=== PATIENT | female | born 1990 | race Caucasian/White ===

== ENCOUNTER 2016-11-01 16:44 | Emergency (ER) | payer MEDICAID ==
[~2016-11-01] VITALS: Ht 149.9 cm; Wt 104.5 kg
[~2016-11-01 16:44] MED LIST: NKA; PERCOCET 325 MG1 TA2 PO; PERCOCET 325 MG1 TA3 PO; PROAIR HFA0.09 MG/AC IH
[2016-11-01 16:46] VITALS: BP 141/88; TEMP 98.7
[2016-11-01] MEDS ORDERED: TYLENOL W/COD1 UDTAB PO (18:11)
[2016-11-01 18:47] VITALS: PULSE 87
== END 2016-11-01 18:52 | disposition home or self-care (01) ==
LOC: COL.ER 16:44
DX: J11.1 Influenza due to unidentified influenza virus with other respiratory manifestations (principal)

== ENCOUNTER 2016-12-06 17:19 | Emergency (ER) | payer MEDICAID ==
[~2016-12-06] VITALS: Ht 152.4 cm; Wt 104.5 kg
[~2016-12-06 17:19] MED LIST changes: +TYLENOL W/COD1 UDTAB PO
[2016-12-06 17:28] VITALS: BP 143/74; TEMP 99.4
[2016-12-06] MEDS ORDERED: AMOXICILLIN 50500 MG PO (17:50)
[2016-12-06 17:58] VITALS: PULSE 78
== END 2016-12-06 17:58 | disposition home or self-care (01) ==
LOC: COL.ER 17:19
DX: K08.89 Other specified disorders of teeth and supporting structures (principal)

== ENCOUNTER 2017-12-21 20:30 | Emergency (ER) | payer MEDICAID ==
[~2017-12-21 20:30] MED LIST changes: +AMOXICILLIN 50500 MG PO
[2017-12-21 20:34] VITALS: TEMP 98.5
[2017-12-21 20:59] LABS: BASO % 0.3 % (0.0-2.0); EOS # 0.3 (0.0-0.7); EOS % 2.6 % (0-4.0); GRAN # 7.6 (1.4-6.5); GRAN % 67.1 % (42.2-75.2); HEMOGLOBIN 12.3 g/dl (12.5-16.0); LYMPH # 2.7 (1.2-3.4); MEAN CELL VOLUME 90 fl (80.0-100.0); MEAN CORPUSCULAR HEMOGLOBIN 31 pg (27.0-31.0); MEAN CORPUSCULAR HGB CONC 35 g/dl (33.0-37.0); MONO # 0.6 (0.1-0.6); MONO % 5.5 % (1.7-9.3); PLATELET COUNT 272 K/mm3 (130-400); RED BLOOD COUNT 3.94 M/mm3 (4.10-5.30); REDCELL DISTRIBUTION WIDTH-CV 12.8 % (11.5-14.5)
[2017-12-21 21:02] LABS: HEMATOCRIT 35.4 % (37.0-47.0)
[2017-12-21 22:33] LABS: ALBUMIN 4.1 gm/dL (3.5-5.0); BILIRUBIN,TOTAL 1.3 mg/dL (0.0-1.0); CALCIUM 9.3 mg/dL (8.4-10.2); CREATININE, serum 0.77 mg/dL (0.52-1.25); POTASSIUM 3.7 mmol/L (3.4-5.0); TOTAL PROTEIN 8.5 gm/dL (6.4-8.2)
[2017-12-21 23:20] LABS: COLLECTION METHOD CLEAN CATCH
[2017-12-21 23:41] LABS: AMORPHOUS CRYSTAL Present /uL; MUCOUS Present /lpf; PH 6 (5-8); SQUAMOUS EPITHELIAL None Seen /hpf; URINE APPEARANCE Turbid; URINE BACTERIA Moderate /hpf; URINE BILIRUBIN Negative (NEGATIVE); URINE BLOOD 3+ (NEGATIVE); URINE COLOR Amber; URINE GLUCOSE Negative (NEGATIVE); URINE KETONE Negative (NEGATIVE); URINE LEUKOCYTE ESTERASE Negative (NEGATIVE); URINE NITRATE Negative (NEGATIVE); URINE PROTEIN(semi-quant) 2+ (NEGATIVE); URINE RBC >50 /hpf
[2017-12-22] MEDS ORDERED: MACROBID 1100 MG/CAP PO (00:27)
[2017-12-22 01:28] VITALS: BP 136/89; PULSE 78
[2017-12-22] MEDS ORDERED: CEFTIN500 MG PO (14:58)
== END 2017-12-22 01:31 | disposition home or self-care (01) ==
LOC: COL.ER 20:30
PROVIDERS: Emergency Medicine
DX: N93.9 Abnormal uterine and vaginal bleeding, unspecified (principal); K52.9 Noninfective gastroenteritis and colitis, unspecified
CPT/HCPCS: J2765; J3010; J7030; Q9967

== ENCOUNTER 2017-12-22 14:09 | Emergency (ER) | payer MEDICAID ==
[~2017-12-22] VITALS: Ht 154.9 cm; Wt 106.8 kg
[~2017-12-22 14:09] MED LIST changes: +MACROBID 1100 MG/CAP PO
[2017-12-22 14:15] VITALS: BP 129/93; TEMP 98.2
[2017-12-22] MEDS ORDERED: CEFTIN500 MG PO (14:58)
[2017-12-22 15:07] VITALS: PULSE 78
== END 2017-12-22 15:08 | disposition home or self-care (01) ==
LOC: COL.ER 14:09
DX: T37.8X5A Adverse effect of other specified systemic anti-infectives and antiparasitics, initial encounter (principal); F17.210 Nicotine dependence, cigarettes, uncomplicated
CPT/HCPCS: J1100

== ENCOUNTER 2018-06-07 21:22 | Emergency (ER) | payer MEDICAID ==
[~2018-06-07 21:22] MED LIST changes: +CEFTIN500 MG PO
[2018-06-07 21:32] VITALS: TEMP 98.3
[2018-06-07 21:51] LABS: COLLECTION METHOD CLEAN CATCH
[2018-06-07 21:59] LABS: MUCOUS Present /lpf; PH 5 (5-8); URINE APPEARANCE Clear; URINE BACTERIA None Seen /hpf; URINE BILIRUBIN Negative (NEGATIVE); URINE BLOOD Negative (NEGATIVE); URINE COLOR Yellow; URINE GLUCOSE Negative (NEGATIVE); URINE KETONE Negative (NEGATIVE); URINE LEUKOCYTE ESTERASE Negative (NEGATIVE); URINE NITRATE Negative (NEGATIVE); URINE PROTEIN(semi-quant) Negative (NEGATIVE); URINE RBC 0-2 /hpf; URINE UROBILINOGEN Negative (NEGATIVE)
[2018-06-07 23:50] LABS: BASO % 0.3 % (0.0-2.0); EOS # 0.2 (0.0-0.7); EOS % 1.6 % (0-4.0); GRAN # 8.1 (1.4-6.5); GRAN % 67.2 % (42.2-75.2); HEMOGLOBIN 11.1 g/dl (12.5-16.0); LYMPH # 3.1 (1.2-3.4); LYMPH % 25.7 % (20.0-51.0); MEAN CELL VOLUME 88 fl (80.0-100.0); MEAN CORPUSCULAR HEMOGLOBIN 29 pg (27.0-31.0); MEAN CORPUSCULAR HGB CONC 33 g/dl (33.0-37.0); MEAN PLATELET VOLUME 11.5 fl (7.4-10.4); MONO # 0.6 (0.1-0.6); MONO % 4.7 % (1.7-9.3); PLATELET COUNT 250 K/mm3 (130-400); RED BLOOD COUNT 3.77 M/mm3 (4.10-5.30); REDCELL DISTRIBUTION WIDTH-CV 13.8 % (11.5-14.5)
[2018-06-07 23:51] LABS: HEMATOCRIT 33.2 % (37.0-47.0)
[2018-06-08 00:05] LABS: ALBUMIN 4.2 gm/dL (3.5-5.0); BILIRUBIN,TOTAL 0.9 mg/dL (0.0-1.0); CALCIUM 9.3 mg/dL (8.4-10.2); CREATININE, serum 0.64 mg/dL (0.52-1.25); POTASSIUM 3.9 mmol/L (3.4-5.0); TOTAL PROTEIN 7.6 gm/dL (6.4-8.2)
[2018-06-08] MEDS ORDERED: PRENATAL (00:24)
[2018-06-08 01:15] VITALS: BP 124/83; PULSE 73
== END 2018-06-08 01:16 | disposition home or self-care (01) ==
LOC: COL.ER 21:22
PROVIDERS: Emergency Medicine; Physician Assistant
DX: O26.891 Other specified pregnancy related conditions, first trimester (principal); R10.10 Upper abdominal pain, unspecified; O99.281 Endocrine, nutritional and metabolic diseases complicating pregnancy, first trimester; E03.9 Hypothyroidism, unspecified; Z3A.01 Less than 8 weeks gestation of pregnancy

== ENCOUNTER 2018-11-29 17:47 | Outpatient (CLI) | payer MEDICAID ==
[~2018-11-29] VITALS: Ht 152.4 cm; Wt 101.4 kg
[~2018-11-29 17:47] MED LIST changes: +PRENATAL
[2018-11-29 17:56] VITALS: BP 129/72; PULSE 70; TEMP 98
[2018-11-29 18:03] LABS: COLLECTION METHOD CLEAN CATCH
[2018-11-29] MEDS ORDERED: TYLENOL 500MG500 MG PO (18:09)
[2018-11-29 18:14] LABS: MUCOUS Present /lpf; PH 6 (5-8); SQUAMOUS EPITHELIAL 0-2 /hpf; URINE APPEARANCE Clear; URINE BACTERIA Rare /hpf; URINE BILIRUBIN Negative (NEGATIVE); URINE BLOOD 1+ (NEGATIVE); URINE COLOR Straw; URINE GLUCOSE Negative (NEGATIVE); URINE KETONE 1+ (NEGATIVE); URINE LEUKOCYTE ESTERASE Negative (NEGATIVE); URINE NITRATE Negative (NEGATIVE); URINE PROTEIN(semi-quant) Negative (NEGATIVE); URINE RBC None Seen /hpf; URINE UROBILINOGEN Negative (NEGATIVE)
--- NOTE | 2018-11-29 18:15 | NUR ---
1750- Pt arrives on unit ambulatory for labor check. Pt complains of having lower back, hip, lower abdominal pain since around 1300 today. Pt denies VB/LOF. +FM. Pt states she had sexual intercourse yesterday. She is concerned that she is having so much discomfort with this . 1800- EFM and TOCO on and tracing intermittently. Assessment completed. 1812- Report given to JONATHON Pulido, she assumes care at this time.
--- NOTE | 2018-11-29 18:59 | NUR ---
1859- STRIP REACTIVE, CONTRACTIONS REMAIN IRREGULAR. MONITORING DC'D AT THIS TIME. DC INSTRUCTIONS REVIEWED WITH PT, UNDERSTANDING VERBALIZED. PT CHANGING WHILE DC PAPERWORK PREPARED.
--- NOTE | 2018-11-29 19:10 | NUR ---
DC PAPERWORK REVIEWED. ENCOURAGED PT TO PUSH FLUIDS. UNDERSTANDING VERBALIZED. PT LEFT THE UNIT AMBULATORY FOR HOME.
== END 2018-11-29 19:10 | disposition home or self-care (01) ==
LOC: LDRO 17:47
PROVIDERS: Obstetrics & Gynecology
DX: O99.89 Other specified diseases and conditions complicating pregnancy, childbirth and the puerperium (principal); M54.5 Low back pain; M25.559 Pain in unspecified hip; R10.30 Lower abdominal pain, unspecified; Z3A.31 31 weeks gestation of pregnancy

== ENCOUNTER 2019-01-20 11:14 | Inpatient (IN) | payer MEDICAID ==
[~2019-01-20] VITALS: Ht 152.4 cm; Wt 105.9 kg
[~2019-01-20 11:14] MED LIST changes: +TYLENOL 500MG500 MG PO
[2019-01-21] VITALS (45 sets, daily range): BP systolic 107–174; BP diastolic 55–97; PULSE 61–93; TEMP 97.5–98.2
--- NOTE | 2019-01-21 07:30 | NUR ---
Pt arrives on unit ambulatory with spouse, and son for induction of labor. G5L4 at 39.2 weeks gestation. Changed into a clean gown. EFM and toco applied. Denies vaginal bleeding, LOF, and regular ctx. Reports GFM. IV started in LW. Labs drawn. LR infusing. Admission assessment completed. Consents signed. Pt oriented to room and POC. VS repeatedly high. Dr. Castillo notified. See physician notification. Bed locked in low position. Call light within reach. No questions or concerns at this time.
[2019-01-21 08:29] LABS: COLLECTION METHOD CLEAN CATCH
[2019-01-21 08:37] LABS: BASO % 0.5 % (0.0-2.0); EOS # 0.1 (0.0-0.7); GRAN # 5.5 (1.4-6.5); GRAN % 63.8 % (42.2-75.2); LYMPH # 2.5 (1.2-3.4); LYMPH % 28.2 % (20.0-51.0); MEAN CELL VOLUME 91 fl (80.0-100.0); MEAN CORPUSCULAR HEMOGLOBIN 30 pg (27.0-31.0); MEAN CORPUSCULAR HGB CONC 33 g/dl (33.0-37.0); MEAN PLATELET VOLUME 12.2 fl (7.4-10.4); MONO # 0.5 (0.1-0.6); MONO % 5.9 % (1.7-9.3); PLATELET COUNT 207 K/mm3 (130-400); RED BLOOD COUNT 3.33 M/mm3 (4.10-5.30); REDCELL DISTRIBUTION WIDTH-CV 13.7 % (11.5-14.5)
[2019-01-21 08:38] LABS: PH 7 (5-8); SQUAMOUS EPITHELIAL 0-2 /hpf; URINE APPEARANCE Clear; URINE BACTERIA None Seen /hpf; URINE BILIRUBIN Negative (NEGATIVE); URINE BLOOD Negative (NEGATIVE); URINE COLOR Straw; URINE GLUCOSE Negative (NEGATIVE); URINE KETONE Negative (NEGATIVE); URINE LEUKOCYTE ESTERASE Negative (NEGATIVE); URINE NITRATE Negative (NEGATIVE); URINE PROTEIN(semi-quant) Negative (NEGATIVE); URINE RBC 0-2 /hpf; URINE UROBILINOGEN Negative (NEGATIVE); URINE WBC 0-2 /hpf
[2019-01-21 08:39] LABS: HEMATOCRIT 30.2 % (37.0-47.0)
[2019-01-21 09:00] LABS: ALANINE AMINOTRANSFERASE < 6 U/L (9-52); ALBUMIN 3.2 gm/dL (3.5-5.0); ALKALINE PHOSPHATASE 141 U/L (50-136); ANION GAP 8 mmol/L (7-16); AST,SGOT 15 U/L (15-37); BLOOD UREA NITROGEN 7 mg/dL (7-17); CALCIUM 8.7 mg/dL (8.4-10.2); CARBON DIOXIDE 21 mmol/L (22-30); CHLORIDE 109 mmol/L (98-107); CREATININE, serum 0.47 (0.52-1.25); GLUCOSE 92 mg/dL (74-106); POTASSIUM 3.6 mmol/L (3.4-5.0); SODIUM 138 mmol/L (137-145); TOTAL PROTEIN 6.6 gm/dL (6.4-8.2)
--- NOTE | 2019-01-21 10:30 | NUR ---
Pt up to birthing ball. Difficulty tracing FHR due to maternal position. RN at bedside adjusting monitors. FHR audible. Pt up to bed. SVE per this RN unchanged. FHR tracing.
--- NOTE | 2019-01-21 12:00 | NUR ---
Dr. Castillo at bedside. SVE per provider unchanged. Pt requesting epidural. Will attempt AROM after epidural. Harsha Botello CRNA notified. LR bolus infusing. Pt ambulates to bathroom. 1210-Pt sitting upright for epidural placement. Difficulty tracing FHR due to maternal position. RN at bedside adjusting monitors. FHR audible. 1215-Single shot administered by Harsha Botello CRNA. No adverse effects noted. See anesthesia record. Pt repostioned WL. FHR tracing. Pt updated on POC. Safety reviewed. No questions or concerns at this time. Bed locked in low position. Call light within reach.
--- NOTE | 2019-01-21 17:00 | NUR ---
Pt calling out with increase pressure. SVE per this RN 8100/+2 1705-Pt reports urge to push. SVE per this RN C/+2. Dr. Castillo on unit and requested to bedside for delivery. 1711-Pt begins pushing with physician moves vertex well. of viable female attended by Dr. Castillo. NCx2. Cord clamped x 2 and cut from umbilicus. dried and placed on mothers abdomen. Apgars 8/9/9. Care of infant to Dalia Cloud RN. 1714- of placenta. Fundus firm at umbilicus. Bleeding WNL. Perineum intact. Pericare performed. Pitocin bolus infusing. Pt updated on POC. Safety reviewed. No questions or concerns at this time. Bed locked in low position. Call light within reach.
--- NOTE | 2019-01-22 02:00 | NUR ---
0200- PATIENT CALLED OUT AT THIS TIME. PATIENT STATES THAT SHE PAST A LARGE CLOT WHILE VOIDING FOR THE SECOND TIME. CLOT CAUGHT IN TOILET "HAT". LARGE CLOT THE SIZE OF AN APPLE NOTED IN THE HAT. PATIENT BACK TO BED AT THIS TIME. FUNDUS FIRM, 2+ UMBILLICUS WITH SCANT FLOW. PATIENT EDUCATED ON NOTIFING NURSE IF ANOTHER CLOT IS PAST NARAYAN FOR EVALUATION.
[2019-01-22 03:30] VITALS: BP 139/75; PULSE 68; TEMP 98.2
--- NOTE | 2019-01-22 08:00 | NUR ---
Rests in bed, alert. Licensed Plumber here to make rounds to see baby. baby after.
[2019-01-22 08:15] VITALS: BP 145/71; PULSE 71; TEMP 97.2
[2019-01-22 11:45] VITALS: BP 132/74; PULSE 80; TEMP 97.9
--- NOTE | 2019-01-22 14:01 | NUR ---
stopped by and offered congrats to mom and prayed with patient.
--- NOTE | 2019-01-22 15:00 | NUR ---
Rests in bed, alert. Visits with family. 1515 Request to have bottle for baby.
[2019-01-22 15:30] VITALS: BP 128/79; PULSE 66; TEMP 98
[2019-01-22 20:40] VITALS: BP 130/62; PULSE 68; TEMP 98.2
[2019-01-23 09:45] VITALS: BP 145/88; PULSE 73; TEMP 98
== END 2019-01-23 11:45 | disposition home or self-care (01) | DRG 807 ==
LOC: LDR 01-21 07:19 → OB 01-21 10:56
PROVIDERS: ADMIT Obstetrics & Gynecology
PROC: 10E0XZZ Delivery of Products of Conception, External Approach (ICD-10-PCS; principal; 2019-01-21)
PROC: 10907ZC Drainage of Amniotic Fluid, Therapeutic from Products of Conception, Via Natural or Artificial Opening (ICD-10-PCS; 2019-01-21)
PROC: 3E033VJ Introduction of Other Hormone into Peripheral Vein, Percutaneous Approach (ICD-10-PCS; 2019-01-21)
DX: O13.4 Gestational [pregnancy-induced] hypertension without significant proteinuria, complicating childbirth (principal); Z37.0 Single live birth; O69.1XX0 Labor and delivery complicated by cord around neck, with compression, not applicable or unspecified; O99.214 Obesity complicating childbirth; Z3A.39 39 weeks gestation of pregnancy
CPT/HCPCS: J2590; J2795; J7120

== ENCOUNTER 2019-09-25 16:25 | Emergency (ER) | payer MEDICAID ==
[~2019-09-25] VITALS: Ht 152.4 cm; Wt 104.5 kg
[2019-09-25 16:49] VITALS: BP 141/88; TEMP 98.6
[2019-09-25 17:02] LABS: COLLECTION METHOD CLEAN CATCH
[2019-09-25 17:50] LABS: PH 5 (5-8); URINE APPEARANCE Clear; URINE BILIRUBIN Negative (NEGATIVE); URINE BLOOD Negative (NEGATIVE); URINE COLOR Yellow; URINE GLUCOSE Negative (NEGATIVE); URINE KETONE Negative (NEGATIVE); URINE LEUKOCYTE ESTERASE Negative (NEGATIVE); URINE NITRATE Negative (NEGATIVE); URINE PROTEIN(semi-quant) Negative (NEGATIVE); URINE UROBILINOGEN Negative (NEGATIVE)
[2019-09-25 18:23] LABS: SQUAMOUS EPITHELIAL 0-2 /hpf; URINE RBC None Seen /hpf
[2019-09-25] MEDS ORDERED: FLEXERIL 1010 MG/TAB PO (19:04)
[2019-09-25] MEDS ORDERED: PREDNISONE20 MG PO (19:04)
[2019-09-25 19:13] VITALS: PULSE 87
== END 2019-09-25 19:15 | disposition home or self-care (01) ==
LOC: COL.ER
PROVIDERS: Emergency Medicine
DX: M54.41 Lumbago with sciatica, right side (principal); Z88.6 Allergy status to analgesic agent; Z87.891 Personal history of nicotine dependence